=== PATIENT | female | born 1965 | race Caucasian/White ===

== ENCOUNTER 2022-04-24 13:32 | Inpatient (IN) ==
[2022-04-24] MEDS ORDERED: Ketorolac 60 MG/2 ML VIAL IM ONE (14:03)
[2022-04-24] MEDS ORDERED: *HR* HYDROmorphone (PF) 1 MG/ML SYRINGE IM ONE (15:01)
[2022-04-24 15:34] LABS: Basophils # 0.1 K/mcL (0.0-0.2); Basophils % 0.7 %; Eosinophils # 0.4 K/mcL (0.0-0.6); Eosinophils % 4.3 %; Hematocrit 34.5 % (35.3-44.9); Hemoglobin 11.1 g/dL (11.5-15.4); Immature Granulocytes % 0.5 % (0-4); Lymphocytes # 2.5 K/mcL (0.6-4.6); Lymphocytes % 24.6 %; Mean Corpuscular HGB Conc 32.2 g/dL (31.6-35.5); Mean Corpuscular Hemoglobin 29.4 pg (28.0-33.3); Mean Corpuscular Volume 91.3 fL (83.0-100.0); Mean Platelet Volume 9.2 fL (9.4-12.4); Monocytes # 0.6 K/mcL (0.0-1.3); Neutrophils # 6.6 K/mcL (1.6-8.9); Platelet Count 281 K/mcL (140-400); Red Blood Count 3.78 M/mcL (3.82-4.97); Segmented Neutrophils % 63.9 %; White Blood Count 10.3 K/mcL (4.3-11.1)
[2022-04-24 15:50] LABS: Albumin 4.2 g/dL (3.5-5.7); Albumin/Globulin Ratio 1.6 (1.1-2.2); Bilirubin,Total 0.3 mg/dL (0.3-1.0); Calcium 9.5 mg/dL (8.6-10.3); Globulin 2.6 g/dL (2.4-3.5); Potassium 4.2 mEq/L (3.5-5.1); Total Protein 6.8 g/dL (6.4-8.9)
[2022-04-24] MEDS ORDERED: Ketorolac 30 MG/ML VIAL IM PRN (16:18)
[2022-04-24] MEDS ORDERED: Naloxone 0.4 MG/ML INJ IVP PRN (16:18)
[2022-04-24 17:37] LABS: Bilirubin,Urine Negative (Negative); Blood,Urine Negative (Negative); Clarity,Urine Clear (Clear); Color,Urine Yellow (Yellow); Glucose,Urine (UA) Normal (Normal); Ketones,Urine Negative (Negative); Leukocyte Esterase,Urine Negative (Negative); Nitrite,Urine Negative (Negative); PH,Urine 5.5 pH Units (5.0-8.0); Protein,Urine Negative (Neg-Trace); Specific Gravity,Urine 1.015 (1.010-1.025); Urobilinogen,Urine Normal (Normal)
[2022-04-24] MEDS: Ondansetron 4 MG/2 ML VIAL IVP PRN (18:12)
[2022-04-24] MEDS ORDERED: LAMOTRIGINE 250 MG PO SCH (21:00)
[2022-04-24] MEDS: amLODIPine 5 MG TABLET PO SCH (21:56)
[2022-04-24] MEDS: Ketorolac 30 MG/ML VIAL IVP PRN (21:57)
[2022-04-24] MEDS: LAMOTRIGINE 200 MG PO SCH (22:11)
[2022-04-25] MEDS: Ketorolac 30 MG/ML VIAL IVP PRN (06:27)
[2022-04-25 08:26] LABS: Hematocrit 34.9 % (35.3-44.9); Hemoglobin 11.2 g/dL (11.5-15.4); Mean Corpuscular HGB Conc 32.1 g/dL (31.6-35.5); Mean Corpuscular Hemoglobin 29.6 pg (28.0-33.3); Mean Corpuscular Volume 92.3 fL (83.0-100.0); Mean Platelet Volume 9.5 fL (9.4-12.4); Platelet Count 258 K/mcL (140-400); Red Blood Count 3.78 M/mcL (3.82-4.97); White Blood Count 9.1 K/mcL (4.3-11.1)
[2022-04-25 08:46] LABS: BUN/Creatinine Ratio 23 (6-26); Blood Urea Nitrogen 25 mg/dL (6-20); Calcium 9.4 mg/dL (8.6-10.3); Carbon Dioxide 27 mEq/L (23-29); Chloride 109 mEq/L (98-107); Glucose 88 mg/dL (70-105); Osmolality,Calculated 298 (280-300); Potassium 4.6 mEq/L (3.5-5.1); Sodium 142 mEq/L (136-145); eGFR For African Americans > 60 (> 60); eGFR For Non-African Americans 52 (> 60)
[2022-04-25] MEDS: amLODIPine 5 MG TABLET PO SCH ×2 (10:03→21:53)
[2022-04-25] MEDS: LAMOTRIGINE 200 MG PO SCH ×2 (10:15→21:54)
[2022-04-25] MEDS: *HR* HYDROcodone/Acet 7.5/325 mg TABLET PO PRN ×2 (12:05→21:52)
[2022-04-25] MEDS: Ondansetron 4 MG/2 ML VIAL IVP PRN (17:21)
[2022-04-26] MEDS: Ondansetron 4 MG/2 ML VIAL IVP PRN (06:47)
[2022-04-26] MEDS: *HR* HYDROcodone/Acet 7.5/325 mg TABLET PO PRN ×3 (06:47→21:24)
[2022-04-26] MEDS ORDERED: Ketorolac 30 MG/ML VIAL IVP ONE (08:53)
[2022-04-26] MEDS: amLODIPine 5 MG TABLET PO SCH ×2 (09:23→21:25)
[2022-04-26] MEDS: LAMOTRIGINE 200 MG PO SCH ×2 (14:23→21:26)
[2022-04-26] MEDS ORDERED: CLOBAZAM 10 MG PO SCH (21:00)
[2022-04-26] MEDS ORDERED: LAMOTRIGINE 200 MG PO SCH (21:00)
[2022-04-26] MEDS: GLUCOSAMINE HCL PO SCH (21:27)
[2022-04-26] MEDS: CHONDR SU A NA PO SCH (21:27)
[2022-04-27] MEDS: *HR* Enoxaparin 40 MG/0.4 ML SYRINGE SQ SCH (06:12)
[2022-04-27] MEDS: amLODIPine 5 MG TABLET PO SCH ×2 (07:54→20:16)
[2022-04-27] MEDS: LAMOTRIGINE 200 MG PO SCH ×2 (07:55→20:17)
[2022-04-27] MEDS: (Ezetimibe [Zetia] 10 MG Tablet) PO SCH (07:55)
[2022-04-27] MEDS: GLUCOSAMINE HCL PO SCH ×2 (07:56→20:17)
[2022-04-27] MEDS: CHONDR SU A NA PO SCH ×2 (07:56→20:17)
[2022-04-27] MEDS: *HR* HYDROcodone/Acet 7.5/325 mg TABLET PO PRN ×2 (07:57→20:16)
[2022-04-27] MEDS: Cyanocobalamin (B-12) 1,000 MCG TABLET PO SCH (08:21)
[2022-04-27] MEDS: Morphine Sulfate 2 MG/ML SYRINGE IVP PRN (13:33)
[2022-04-27] MEDS: Ondansetron 4 MG/2 ML VIAL IVP PRN (13:47)
[2022-04-28] MEDS: *HR* Enoxaparin 40 MG/0.4 ML SYRINGE SQ SCH (05:58)
[2022-04-28] MEDS: CHONDR SU A NA PO SCH ×2 (07:55→22:17)
[2022-04-28] MEDS: GLUCOSAMINE HCL PO SCH ×2 (07:55→22:17)
[2022-04-28] MEDS: Cyanocobalamin (B-12) 1,000 MCG TABLET PO SCH (07:55)
[2022-04-28] MEDS: LAMOTRIGINE 200 MG PO SCH ×2 (07:56→22:15)
[2022-04-28] MEDS: (Ezetimibe [Zetia] 10 MG Tablet) PO SCH (07:56)
[2022-04-28] MEDS: amLODIPine 5 MG TABLET PO SCH ×2 (07:57→22:15)
[2022-04-28 08:27] LABS: Hemoglobin 12.1 g/dL (11.5-15.4); Mean Corpuscular HGB Conc 32.7 g/dL (31.6-35.5); Mean Corpuscular Hemoglobin 29.6 pg (28.0-33.3); Mean Corpuscular Volume 90.5 fL (83.0-100.0); Mean Platelet Volume 9.1 fL (9.4-12.4); Platelet Count 257 K/mcL (140-400); Red Blood Count 4.09 M/mcL (3.82-4.97); Red Cell Distribution Width 12.1 % (11.5-14.5); White Blood Count 13.3 K/mcL (4.3-11.1)
[2022-04-28 08:40] LABS: BUN/Creatinine Ratio 19 (6-26); Blood Urea Nitrogen 17 mg/dL (6-20); Calcium 9.9 mg/dL (8.6-10.3); Carbon Dioxide 28 mEq/L (23-29); Chloride 103 mEq/L (98-107); Glucose 81 mg/dL (70-105); Osmolality,Calculated 293 (280-300); Potassium 4.2 mEq/L (3.5-5.1); Sodium 141 mEq/L (136-145); eGFR For African Americans > 60 (> 60); eGFR For Non-African Americans > 60 (> 60)
[2022-04-28 13:12] LABS: % Iron Saturation 3 % (15-50); Iron 10 mcg/dL (50-170); Transferrin 232 mg/dL (203-362)
[2022-04-28 13:20] LABS: Folate > 22.3 ng/mL (3.0-16.0); Vitamin B12 > 1500 pg/mL (250-1100)
[2022-04-28] MEDS: *HR* HYDROcodone/Acet 7.5/325 mg TABLET PO PRN (14:38)
[2022-04-28] MEDS ORDERED: Sennosides/Docusate Sodium TABLET PO ONE (23:00)
[2022-04-28] MEDS ORDERED: *HR* HYDROcodone/Acet 10/325 mg TABLET PO PRN (23:07)
[2022-04-28] MEDS ORDERED: Bisacodyl 10 MG RECTAL SUPPOSITORY RC PRN (23:07)
[2022-04-28] MEDS: Morphine Sulfate 2 MG/ML SYRINGE IVP PRN (23:13)
[2022-04-28] MEDS: 0.9 % Sodium Chloride 1,000 ML IVC SCH (23:53)
[2022-04-29 06:40] VITALS: TEMP 99.1
[2022-04-29] MEDS ORDERED: Sennosides/Docusate Sodium TABLET PO SCH (09:00)
[2022-04-29] MEDS ORDERED: polyethylene glycoL 3350 17 GM POWD.PACK PO SCH (09:00)
[2022-04-29] MEDS: 0.9 % Sodium Chloride 1,000 ML IVC SCH (11:38)
[2022-04-29] MEDS: LAMOTRIGINE 200 MG PO SCH (11:39)
[2022-04-29] MEDS: (Ezetimibe [Zetia] 10 MG Tablet) PO SCH (11:40)
[2022-04-29] MEDS: CHONDR SU A NA PO SCH (11:40)
[2022-04-29] MEDS: GLUCOSAMINE HCL PO SCH (11:40)
[2022-04-29] MEDS: Cyanocobalamin (B-12) 1,000 MCG TABLET PO SCH (11:41)
[2022-04-29 14:45] VITALS: BP 104/70; PULSE 80; RESP 16; O2SAT 94
[2022-04-29] MEDS: Morphine Sulfate 2 MG/ML SYRINGE IVP PRN (16:55)
== END 2022-04-29 17:35 | disposition short-term general hospital (02) | DRG 351 ==
LOC: EMEROOPIK 13:32 → INPPIK 13:32
PROVIDERS: ADMIT Family Medicine; ATTEND Family Medicine